=== PATIENT | male | born 1990 | race African-American/Black ===

== ENCOUNTER 2017-01-24 02:44 | Emergency (ER) | payer MEDICAID ==
[~2017-01-24] VITALS: Ht 190.5 cm; Wt 215.0 kg
[~2017-01-24 02:44] MED LIST: BUSP7.5T4 PO; HYDR-2768 PO; LOPR50TA12 PO
[2017-01-24 02:46] VITALS: BP 175/102; PULSE 105; RESP 20; TEMP 98.9; O2SAT 100
--- NOTE | 2017-01-24 03:20 | PD ---
HPI Chief Complaint: Oral / Dental Pain or Problem Time Seen by Provider: 03:17 Travel History International Travel<30 days: No Contact w/Intl Traveler<30days: No Traveled to known affect area: No History of Present Illness HPI 26-year-old black male presents to emergency department accompanied by his and children for evaluation of dental pain. According to the patient and his he's been suffered with dental pain now for the last 2 months. He reportedly has gotten worse this evening. He alleges an appointment with [facility] in the near future. He denies any fever or chills. No difficulty swallowing area and no swelling of the throat. No shortness of breath or wheezing. He does admit to pain into his left ear. Symptoms are moderate. PFSH Past Medical History Narrative Medical Anxiety, panic attacks, hypertension Blood Disorders: No Anxiety: Yes Cardiovascular Problems: Yes (HTN) Diminished Hearing: No Psychiatric: Yes (PANIC ATTACKS) Immunizations Current: Yes Tetanus Vaccination: < 5 Years Past Surgical History Surgical History: No Previous Surgery Social History Alcohol Use: Yes (OCC) Tobacco Use: No Substance Use: No Allergies-Medications (Allergen,Severity, Reaction): Coded Allergies: Ibuprofen (Verified Allergy, Severe, MUSCLE PAIN, 01/24/17) Reported Meds & Prescriptions Reported Meds & Active Scripts Active Lortab (Hydrocodone-Acetaminophen) 5-325 Mg Tab 1 Tab PO Q8HR PRN Amoxicillin 500 Mg Tab 1,000 Mg PO BID Review of Systems Except as stated in HPI: all other systems reviewed are Neg Physical Exam Narrative GENERAL: Well-developed, well-nourished in no acute distress. Nontoxic appearing. HEAD: Normocephalic, atraumatic. EYES: Pupils equal round and reactive. Extraocular motions intact. No scleral icterus. No injection or drainage. ENT: TMs clear without erythema. The external auditory canals clear. Nose: clear . Posterior pharynx is pink and moist. No tonsillar edema or exudate. Uvula midline. Airway patent. Patient points to his left upper and lower molars as a source of his pain. He has a few dental caries but no significant gingival swelling or erythema. The floor the mouth is normal. NECK: Trachea midline.Supple, nontender, moves head freely. No central bony tenderness or spasm. CARDIOVASCULAR: Regular rate and rhythm without murmurs, gallops, or rubs. RESPIRATORY: Clear to auscultation. Breath sounds equal bilaterally. No wheezes , rales, or rhonchi. GASTROINTESTINAL: Abdomen soft, non-tender, nondistended. No hepato-splenomegaly , or palpable masses. No guarding. EXTREMITIES: No clubbing, cyanosis, or edema. No joint tenderness, effusion, or edema noted. BACK: Nontender without deformity or crepitance. No flank tenderness. Data Data Last Documented VS Vital Signs Date Time Temp Pulse Resp B/P Pulse Ox O2 Delivery O2 Flow Rate FiO2 01/24/17 02:46 98.9 105 20 175/102 100 Orders Bupivacaine Pf 0.5% Inj (Marcaine Pf 0.5 (01/24/17 03:30) Lidocai-Epi 1%-1:100,000 Inj (Xylocaine- (01/24/17 03:30) Amoxicillin (Trimox) (01/24/17 03:30) MDM Medical Decision Making Medical Screen Exam Complete: Yes Emergency Medical Condition: Yes Medical Record Reviewed: Yes Differential Diagnosis MDM: Moderate Differential diagnoses: Dental abscess, dental caries, osteitis, cellulitis Narrative Course Patient is given Amoxil 1 g by mouth. Procedures Procedure Narrative Patient is given a dental block to tooth #16 and 17 with 0.5% Marcaine Diagnosis Primary Impression: Dental caries Additional Impression: Dentalgia Patient Instructions: General Instructions Additional Instructions: Rest. Saltwater gargles. [place] oil on cotton balls. Amoxicillin and Lortab follow-up with a dentist as soon as possible. And return to the ER if any problems. Med/Other Pt SpecificInfo: Prescription(s) given Scripts Hydrocodone-Acetaminophen (Lortab)5-325 Mg Tab1 Tab PO Q8HR PRN (PAIN) #12 TAB Prov:Adwoa Palomino MD 01/24/17 Amoxicillin 500 Mg Tab1,000 Mg PO BID #40 TAB Prov:Adwoa Palomino MD 01/24/17 Disposition: 01 DISCHARGE HOME Condition: Stable Sb Jorge Jan 24, 2017 03:20
[2017-01-24] MEDS ORDERED: AMOXICILLIN (TRIHYDRATE) 500 MG CAP PO ONE (03:30)
[2017-01-24] MEDS ORDERED: LIDOCAINE 1%/EPINEPHrine 1:100,000 SOLN 20 ML VIAL INFIL ONE (03:30)
[2017-01-24] MEDS ORDERED: BUPIVACAINE HCL PF 0.5% 30 ML VIAL INFIL ONE (03:30)
[2017-01-24] MEDS ORDERED: AMOX500T PO (03:41)
[2017-01-24] MEDS ORDERED: HYDR-3533 PO (03:41)
== END 2017-01-24 03:59 | disposition home or self-care (01) ==
LOC: NEPD 02:44
DX: K02.9 Dental caries, unspecified (principal); I10 Essential (primary) hypertension
CPT/HCPCS: 64400